=== PATIENT | female | born 2000 | race Two or more races ===

== ENCOUNTER 2024-06-10 19:42 | Emergency (ER) | payer OTHER ==
[~2024-06-10] VITALS: Ht 165.1 cm; Wt 62.7 kg
[2024-06-10 19:44] VITALS: BP 114/69; PULSE 81; RESP 18; TEMP 97.6; O2SAT 98
[2024-06-10 20:04] LABS: COVID AG,FIA SOURCE NASAL SWAB
[2024-06-10 20:26] LABS: INFLUENZA TYPE A NEGATIVE FOR TYPE A (NEGATIVE); INFLUENZA TYPE B NEGATIVE FOR TYPE B (NEGATIVE); SARS-COV2 (COVID) ANTIGEN,FIA Negative (Negative)
[2024-06-10] MEDS ORDERED: AMOX-457 PO (20:29)
[2024-06-10] MEDS ORDERED: ACET-2247 PO (20:29)
[2024-06-10] MEDS: ACETAMINOPHEN 325 MG TABLET PO ONE (20:35)
[2024-06-10] MEDS: AMOX TR/POT CLAV 875 MG/125 MG TABLET PO ONE (20:36)
== END 2024-06-10 20:41 | disposition home or self-care (01) ==
LOC: EMS 19:47
DX: H66.91 Otitis media, unspecified, right ear (principal); Z20.822 Contact with and (suspected) exposure to COVID-19
CPT/HCPCS: 87804; 99283